=== PATIENT | male | born 1985 | race Two or more races ===

== ENCOUNTER 2020-02-10 15:36 | Emergency (ER) | payer OTHER ==
[~2020-02-10] VITALS: Ht 172.7 cm; Wt 98.4 kg
[2020-02-10] MEDS ORDERED: LISINOPRIL40 MG PO (15:57)
[2020-02-10] MEDS ORDERED: TRAZODONE HCL5 GM PO (15:58)
[2020-02-10] MEDS ORDERED: HYDROXYZINE HCL50 MG PO (15:58)
[2020-02-10] MEDS ORDERED: VENTOLIN HFA18 GM INH (16:00)
[2020-02-10] MEDS ORDERED: MELATONIN1 MG PO (16:00)
== END 2020-02-10 17:30 | disposition home or self-care (01) ==
LOC: ED 15:36
DX: S61.011A Laceration without foreign body of right thumb without damage to nail, initial encounter (principal); W45.8XXA Other foreign body or object entering through skin, initial encounter; J45.909 Unspecified asthma, uncomplicated; I11.0 Hypertensive heart disease with heart failure; I50.9 Heart failure, unspecified; Z87.891 Personal history of nicotine dependence; Z88.0 Allergy status to penicillin; Z91.018 Allergy to other foods; Z88.8 Allergy status to other drugs, medicaments and biological substances; Z79.899 Other long term (current) drug therapy
CPT/HCPCS: 12001; 99282-25